=== PATIENT | female | born 1950 | race Caucasian/White ===

== ENCOUNTER → 2018-05-09 | Outpatient (CLI) | payer OTHER ==
[~2018-05-09] MED LIST: ASPI81CH; Centrum Silver1 EAC1; Coq-1030 MG; HYDCHL25; LOVA40; ZESTORETIC 20-121 EA
[2018-05-09 11:49] LABS: BASOPHILS ABSOLUTE AUTO 0.04 K/mm3 (0.00-0.23); BASOPHILS PERCENT AUTO 1 % (0-2); EOSINOPHILS ABSOLUTE AUTO 0.11 K/mm3 (0.00-0.68); EOSINOPHILS PERCENT AUTO 1 % (0-6); Hematocrit 45.8 % (33.0-51.0); Hemoglobin 15.5 g/dL (11.5-16.0); IMMATURE GRAN ABSOLUTE AUTO 0.03 K/mm3 (0.00-0.10); IMMATURE GRAN PERCENT AUTO 0 % (0-1); LYMPHOCYTES ABSOLUTE AUTO 2.23 K/mm3 (0.84-5.20); LYMPHOCYTES PERCENT AUTO 28 % (21-46); MONOCYTES ABSOLUTE AUTO 0.74 K/mm3 (0.16-1.47); MONOCYTES PERCENT AUTO 9 % (4-13); Mean Corpuscular HGB 29.6 pg (26.0-34.0); Mean Corpuscular HGB Conc 33.8 g/dL (31.5-36.5); Mean Corpuscular Volume 88 fL (80-100); Mean Platelet Volume 11.9 fL (9.1-12.4); NEUTROPHILS ABSOLUTE AUTO 4.91 K/mm3 (1.96-9.15); NEUTROPHILS PERCENT AUTO 61 % (41-73); Platelet Count 202 K/mm3 (150-400); RDW Coefficient Variation 13.8 % (11.7-14.2); Red Blood Cell Count 5.23 M/mm3 (3.80-5.20); White Blood Cell Count 8.06 K/mm3 (4.00-11.30)
[2018-05-09 12:07] LABS: Albumin, Blood 3.6 g/dL (3.4-5.0); Albumin/Globulin Ratio 0.9 (0.8-1.8); Bilirubin, Total 0.5 mg/dL (0.1-1.0); Bun/Creatinine Ratio 13.1 (12.0-20.0); Calcium, Blood 9.7 mg/dL (8.5-10.1); Creatinine, Blood 0.99 mg/dL (0.40-1.00); Globulin, Blood 4.1 g/dL (2.2-4.0); Potassium, Blood 3.9 mmol/L (3.5-5.5); Total Protein, Blood 7.7 g/dL (6.4-8.2)
== END | disposition home or self-care (01) ==
LOC: LAB SHORT 11:44 → LAB EV 11:44
PROVIDERS: Family Medicine
DX: R10.11 Right upper quadrant pain (principal)
CPT/HCPCS: 80053; 83690; 85025

== ENCOUNTER → 2022-05-05 | Outpatient (CLI) | payer OTHER ==
[~2022-05-05] MED LIST changes: +Aspirin EC81 MG PO; +HYDCHL25 PO; +Lovastatin20 MG PO; +Prinivil10 MG PO
[2022-05-07 09:06] LABS: Stool Occult Bld Immuno 1 Negative (NEGATIVE)
== END | disposition home or self-care (01) ==
LOC: LAB SHORT 17:27
PROVIDERS: Family Medicine
DX: Z12.11 Encounter for screening for malignant neoplasm of colon (principal)
CPT/HCPCS: 82274

== ENCOUNTER 2024-04-20 06:27 | Day surgery (SDC) | payer OTHER ==
[2024-04-20] VITALS (17 sets, daily range): BP systolic 79–133; BP diastolic 42–69
[~2024-04-20] VITALS: Ht 157.5 cm; Wt 100.3 kg
[2024-04-20] MEDS ORDERED: Tranexamic Acid 100 ML IV SCH (07:20)
[2024-04-20] MEDS ORDERED: Lactated Ringer's 1,000 ML IV SCH ×2 (07:20→08:00)
[2024-04-20] MEDS ORDERED: Chlorhexidine Mouth Care 15 ML UDC MT SCH (07:20)
[2024-04-20] MEDS ORDERED: Acetaminophen 500 MG Tab PO SCH ×2 (07:20→16:00)
[2024-04-20] MEDS ORDERED: Ropivacaine 0.5% HCl/Pf 123.125 MG,EPINEPHrine HCL 0.25 MG,Ketorolac Tromethamine 15 MG... INFIL SCH (07:20)
[2024-04-20] MEDS ORDERED: OxyCODONE HCL 10 MG TABCR PO SCH (07:20)
[2024-04-20] MEDS ORDERED: CeFAZolin Sodium 2,000 MG in NS 100 ML IV SCH ×2 (07:20→16:30)
[2024-04-20] MEDS ORDERED: Bisacodyl 10 MG Supp PR PRN (07:55)
[2024-04-20] MEDS ORDERED: Promethazine HCl 25 MG Tab PO PRN (07:55)
[2024-04-20] MEDS ORDERED: Prochlorperazine Edisylate 10 mg Vial IV PRN (07:55)
[2024-04-20] MEDS ORDERED: propofoL 100 ML IV ONE (07:56)
[2024-04-20] MEDS ORDERED: Ondansetron HCl 2 MG / ML 2ML Vial IV PRN (08:00)
[2024-04-20] MEDS ORDERED: HYDROmorphone HCl/Pf 1MG SYR IV PRN (08:00)
[2024-04-20] MEDS ORDERED: Metoclopramide HCl 5MG / ML 2ML Vial IV PRN (08:00)
[2024-04-20] MEDS ORDERED: OxyCODONE HCL 5 MG TAB PO PRN ×2 (08:00)
[2024-04-20] MEDS ORDERED: Magnesium Hydroxide Conc 10 ML UDC PO PRN (08:00)
[2024-04-20] MEDS ORDERED: DiphenhydrAMINE HCL 25 MG Cap PO PRN (08:05)
[2024-04-20] MEDS ORDERED: HYDROcodone 5-APAP 325 TAB PO PRN (08:05)
[2024-04-20] MEDS ORDERED: FentaNYL Citrate 50 MCG/ML 2 ML Injection ONE ×2 (08:22→09:00)
[2024-04-20] MEDS ORDERED: Ondansetron HCl 2 MG / ML 2ML Vial ONE (09:00)
[2024-04-20] MEDS ORDERED: Phenylephrine HCl 10mg/ml 1 ml Vial ONE (09:00)
[2024-04-20] MEDS ORDERED: Phenylephrine HCl 100 MCG/ML-NS 10MLSYR (1MG/10ML) ONE (09:00)
[2024-04-20] MEDS ORDERED: Dexamethasone Sod Phos 10 MG/ML 1ML VIAL ONE (09:00)
[2024-04-20] MEDS ORDERED: Lidocaine HCl 2% 20 ML MDV ONE (09:00)
[2024-04-20] MEDS ORDERED: Atorvastatin 10 MG Tab PO SCH (09:00)
[2024-04-20] MEDS ORDERED: ePHEDrine Sulfate 50 MG/ML 1ML Injection ONE (10:50)
[2024-04-20] MEDS ORDERED: HYDROmorphone HCl/Pf 1MG SYR ONE (10:58)
--- NOTE | 2024-04-20 11:52 | NUR ---
ARRIVAL PT ARRIVED TO UNIT FROM PACU S/P [facility], AQUACEL TO R HIP [facility]. POLAR CHARITY AND ERICK HOSE IN PLACE. PT REPORTS PAIN AT 7/10 BUT TOLERABLE AT THIS TIME. DRINKING JUICE AND EATING CRACKERS AT THIS TIME. CALL LIGHT PROVIDED AND IN REACH. PT HAS PICKED UP PRESCRIPTIONS ALREADY, SHE IS EAGER TO WORK WITH THERAPY.
[2024-04-20] MEDS ORDERED: Ketorolac Tromethamine 15mg Vial IV SCH (12:00)
[2024-04-20] MEDS ORDERED: CLIN150 PO (15:29)
--- NOTE | 2024-04-20 15:58 | NUR ---
DISCHARGE S/P RTHA PT REPORTS PAIN WELL CONTROLLED PER EMAR. REPORTS PAIN SIGNIFICANTLY BETTER THAN PRIOR TO SURGERY. TOLERATING DIET WELL WITH NO NAUSEA. PRESCRIPTIONS PICKED UP PRIOR TO DISCHARGE. AQUACEL REMAINS CDI. EXTRA DRESSINGS SENT WITH PATIENT. ALL INSTRUCTIONS GONE OVER WITH PATIENT AND SISTER. JUNIE NASH WITH PATIENT.
[2024-04-20] MEDS ORDERED: Docusate Sodium 100 MG Cap PO SCH (21:00)
[2024-04-21] MEDS ORDERED: Aspirin 81 MG Chew PO SCH (09:00)
== END 2024-04-20 16:00 | disposition home or self-care (01) ==
LOC: ORSCMMR 06:27 → ORD 08:00 → SURS 09:46 → ORSCMMR 16:00
PROVIDERS: Orthopaedic Surgery
PROC: 0SR90JZ Replacement of Right Hip Joint with Synthetic Substitute, Open Approach (ICD-10-PCS; principal; 2024-04-20 08:00)
DX: M16.11 Unilateral primary osteoarthritis, right hip (principal); I10 Essential (primary) hypertension; G47.33 Obstructive sleep apnea (adult) (pediatric); K21.9 Gastro-esophageal reflux disease without esophagitis; Z79.899 Other long term (current) drug therapy; Z79.82 Long term (current) use of aspirin; E78.5 Hyperlipidemia, unspecified; Z87.891 Personal history of nicotine dependence
CPT/HCPCS: 72170; 97110; 97116; 97162; A9270; C1776; J0171; J0690; J0735; J1100; J1170; J1885; J2371; J2405; J2704; J2795; J3010; J7120

== ENCOUNTER 2024-05-11 09:03 | Day surgery (SDC) | payer OTHER ==
[2024-05-11] VITALS (10 sets, daily range): BP systolic 104–116; BP diastolic 51–61
[~2024-05-11] VITALS: Ht 157.5 cm; Wt 100.3 kg
[~2024-05-11 09:03] MED LIST changes: +CLIN150 PO; +CeFAZolin Sodium 2,000 MG in NS 100 ML IV SCH; +Lactated Ringer's 1,000 ML IV SCH
[2024-05-11] MEDS ORDERED: NYAMYC1513 (09:52)
[2024-05-11] MEDS ORDERED: FentaNYL Citrate 50 MCG/ML 2 ML Injection ONE ×2 (09:58→11:31)
[2024-05-11] MEDS ORDERED: propofoL 20 ML IV ONE (09:58)
[2024-05-11] MEDS ORDERED: Phenylephrine HCl 100 MCG/ML-NS 10MLSYR (1MG/10ML) ONE (10:00)
[2024-05-11] MEDS ORDERED: Bupivacaine 0.5% HCl 5 MG/ML 30MLVIAL ONE (10:10)
[2024-05-11] MEDS ORDERED: Dexamethasone Sod Phos 10 MG/ML 1ML VIAL ONE (10:22)
[2024-05-11] MEDS ORDERED: ePHEDrine Sulfate 50 MG/ML 1ML Injection ONE (10:35)
[2024-05-11] MEDS ORDERED: Ondansetron HCl 2 MG / ML 2ML Vial ONE (10:45)
[2024-05-11] MEDS ORDERED: FentaNYL Citrate 50 MCG/ML 2 ML Injection IV PRN ×3 (10:50→10:55)
[2024-05-11] MEDS ORDERED: HYDROmorphone HCl/Pf 1MG SYR IV PRN (10:50)
[2024-05-11] MEDS ORDERED: Ondansetron HCl 2 MG / ML 2ML Vial IV PRN (10:50)
[2024-05-11] MEDS ORDERED: Ketorolac Tromethamine 30mg Vial ONE (10:58)
[2024-05-11] MEDS ORDERED: OxyCODONE 5 mg/Acetamin 325 mg TABLET PO PRN (11:45)
--- NOTE | 2024-05-11 13:01 | NUR ---
Discharge instructions reviewed with patient. Patient verbalizes understanding. Copy given to patient to take home. Prescriptions already picked up by sister per pt. AMRIT dressing w/scant drainage, seal intact, green light on. Extra dressing sent with pt. Patient States Post-Procedure ride home has been arranged. Discharged via wheelchair to private car for ride home.
== END 2024-05-11 12:50 | disposition home or self-care (01) ==
LOC: ORSCMMR 09:03
PROVIDERS: Orthopaedic Surgery
PROC: 0J9L0ZX Drainage of Right Upper Leg Subcutaneous Tissue and Fascia, Open Approach, Diagnostic (ICD-10-PCS; principal; 2024-05-11 10:00)
DX: L76.32 Postprocedural hematoma of skin and subcutaneous tissue following other procedure (principal); I10 Essential (primary) hypertension; E78.5 Hyperlipidemia, unspecified; Z96.641 Presence of right artificial hip joint; Z79.82 Long term (current) use of aspirin; Z79.899 Other long term (current) drug therapy
CPT/HCPCS: 87070; 87075; 87077; 87186; 87205; A9270; J0690; J1100; J1885; J2371; J2405; J2704; J3010; J7120

== ENCOUNTER → 2025-06-01 | Outpatient (CLI) | payer OTHER ==
[~2025-06-01] MED LIST changes: -CeFAZolin Sodium 2,000 MG in NS 100 ML IV SCH; -Lactated Ringer's 1,000 ML IV SCH; +NYAMYC1513
== END ==
LOC: LAB SHORT 12:23 → LAB 12:23
DX: R30.0 Dysuria (principal)
CPT/HCPCS: 87086